=== PATIENT | female | born 1995 | race Caucasian/White ===

== ENCOUNTER 2021-10-14 18:25 | Emergency (ER) | payer OTHER ==
[~2021-10-14] VITALS: Ht 157.5 cm; Wt 68.0 kg
== END 2021-10-14 20:16 | disposition home or self-care (01) ==
LOC: ER 18:25 → EDBD 19:18 → ER 19:18
DX: S01.81XA Laceration without foreign body of other part of head, initial encounter (principal); S60.221A Contusion of right hand, initial encounter; W05.2XXA Fall from non-moving motorized mobility scooter, initial encounter; Y93.89 Activity, other specified; Y92.89 Other specified places as the place of occurrence of the external cause; Y99.9 Unspecified external cause status

== ENCOUNTER 2021-10-21 08:30 | Emergency (ER) | payer OTHER ==
[~2021-10-21] VITALS: Ht 157.5 cm; Wt 68.0 kg
== END 2021-10-21 11:31 | disposition home or self-care (01) ==
LOC: EDBD 08:30 → ER 08:30
DX: Z48.01 Encounter for change or removal of surgical wound dressing (principal)

== ENCOUNTER 2021-10-28 08:11 | Emergency (ER) | payer OTHER ==
[~2021-10-28] VITALS: Ht 157.5 cm; Wt 68.0 kg
== END 2021-10-28 10:08 | disposition home or self-care (01) ==
LOC: ER 08:11
DX: Z48.02 Encounter for removal of sutures (principal)